=== PATIENT | male | born 2005 | race African-American/Black ===

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

== ENCOUNTER 2024-03-20 12:02 | Emergency (ER) | payer SELFPAY ==
[~2024-03-20] VITALS: Ht 180.3 cm; Wt 74.6 kg
[2024-03-20 12:39] VITALS: BP 154/96; PULSE 86; RESP 16; TEMP 99.1; O2SAT 98
[2024-03-20] MEDS ORDERED: LIDO2SOL26 MT (12:45)
[2024-03-20] MEDS ORDERED: AZIT500T66 PO (12:45)
== END 2024-03-20 12:55 | disposition home or self-care (01) ==
LOC: ER 12:02
DX: J03.90 Acute tonsillitis, unspecified (principal); Z79.899 Other long term (current) drug therapy